=== PATIENT | male | born 1980 | race African-American/Black ===

== ENCOUNTER 2021-08-28 10:12 | Emergency (ER) | payer MEDICAID, OTHER ==
[~2021-08-28] VITALS: Ht 185.4 cm; Wt 104.8 kg
--- NOTE | 2021-08-28 10:12 | NUR ---
PT BIBRA 102 FROM [facility] C/O BIZARRE BEHAVIOR "HE WAS TALKING TO HIMSELF AND OUT OF PSYCH MEDS" PT IS AAOX3, NOT IN RESPIRTORY DISTRESS, V/S STABLE, KEPT RESTED AND COMFORTABLE. WILL CONTINUE TO MONITOR.
--- NOTE | 2021-08-28 10:22 | NUR ---
CALLED SECURITY FOR WANDING.
[2021-08-28] MEDS ORDERED: OLANZAPINE 10 MG VIAL IM ONE ×2 (10:28→10:30)
[2021-08-28] MEDS ORDERED: LORAZEPAM INJ 2 MG/ML VIAL ONE (10:29)
[2021-08-28] MEDS ORDERED: LORAZEPAM INJ 2 MG/ML VIAL IVP ONE (10:30)
--- NOTE | 2021-08-28 10:35 | NUR ---
ER PHLEB AT BEDSIDE FOR BLOOD DRAW.
[2021-08-28 10:52] LABS: BASOPHILS # (AUTO) 0.1 K/uL (0.0-0.2); BASOPHILS % (AUTO) 0.6 % (0.0-2.0); EOSINOPHILS % (AUTO) 1.2 % (0.0-6.0); HEMATOCRIT 43 % (39-51); HEMOGLOBIN 14.5 g/dL (13.5-17.5); LYMPHOCYTES # (AUTO) 1.7 K/uL (0.8-4.8); MEAN CORPUSCULAR HGB CONC 34 g/dl (31.0-36.0); MEAN CORPUSCULAR VOLUME 91 fL (80-96); MONOCYTES # (AUTO) 0.8 K/uL (0.1-1.30); MONOCYTES % (AUTO) 8.9 % (2.0-12.0); NEUTROPHILS # (AUTO) 5.9 K/uL (1.8-8.9); NEUTROPHILS % (AUTO) 69.3 % (43.0-81.0); PLATELET COUNT (AUTO) 286 K/uL (150-450); WHITE BLOOD COUNT (AUTO) 8.6 K/uL (4.3-11.0)
[2021-08-28 11:08] LABS: ALANINE AMINOTRANSFERASE 19 U/L (12-78); ALCOHOL, BLOOD < 3 mg/dL (0-0); ALKALINE PHOSPHATASE 62 U/L (46-116); ASPARTATE AMINOTRANSFERASE 11 U/L (15-37); BILIRUBIN,DIRECT 0.1 mg/dL (0.0-0.2); BILIRUBIN,TOTAL 0.3 mg/dL (0.2-1.0); CALCIUM, SERUM 9.2 mg/dL (8.5-10.1); CARBON DIOXIDE 25 mmol/L (21-32); CHLORIDE 102 mmol/L (98-107); GLUCOSE 106 mg/dL (74-106); POTASSIUM 3.6 mmol/L (3.5-5.1); SODIUM SERUM 136 mmol/L (136-145); TOTAL PROTEIN, SERUM 7.6 g/dL (6.4-8.2); UREA NITROGEN, BLOOD 9 mg/dL (7-18)
[2021-08-28 11:09] LABS: ACETAMINOPHEN 0 ug/ml (10-30)
[2021-08-28] MEDS ORDERED: OLAN10TA3 PO (18:15)
[2021-08-28 20:30] VITALS: BP 130/64
--- NOTE | 2021-08-28 20:30 | NUR ---
Patient discharged to home in stable condition. Written and verbal after care instructions given. Patient verbalizes understanding of instruction.
== END 2021-08-28 20:31 | disposition home or self-care (01) ==
LOC: ER 10:17
DX: F29 Unspecified psychosis not due to a substance or known physiological condition (principal); R45.1 Restlessness and agitation; J45.909 Unspecified asthma, uncomplicated; F20.9 Schizophrenia, unspecified; Z60.2 Problems related to living alone
CPT/HCPCS: 36415; 80048; 80076; 80143; 80320; 85025; 96372 ×2; 99284; J2060; J3490; J7040; G0480

== ENCOUNTER 2022-02-26 04:49 | Emergency (ER) | payer OTHER ==
[~2022-02-26] VITALS: Ht 188 cm; Wt 117.9 kg
[~2022-02-26 04:49] MED LIST: OLAN10TA3 PO
--- NOTE | 2022-02-26 04:55 | NUR ---
[id number] from street, hearing voices +SI no plan. c/o left ankle pain. Kept comfortable, will continue to monitor accordingly.
--- NOTE | 2022-02-26 05:00 | NUR ---
covid swab and urine collected and sent to lab.
--- NOTE | 2022-02-26 05:00 | NUR ---
security at bedside for wanding.
[2022-02-26 05:36] LABS: BASOPHILS % (AUTO) 0.4 % (0.0-2.0); EOSINOPHILS % (AUTO) 1.1 % (0.0-6.0); HEMATOCRIT 42 % (39-51); LYMPHOCYTES # (AUTO) 1.7 K/uL (0.8-4.8); LYMPHOCYTES % (AUTO) 16.8 % (20.0-44.0); MEAN CORPUSCULAR HGB CONC 34 g/dl (31.0-36.0); MEAN CORPUSCULAR VOLUME 90 fL (80-96); MONOCYTES # (AUTO) 1.2 K/uL (0.1-1.30); MONOCYTES % (AUTO) 11.7 % (2.0-12.0); NEUTROPHILS # (AUTO) 7.3 K/uL (1.8-8.9); PLATELET COUNT (AUTO) 312 K/uL (150-450); RED BLOOD CELL COUNT(AUTO) 4.66 MIL/uL (4.5-6.0); WHITE BLOOD COUNT (AUTO) 10.4 K/uL (4.3-11.0)
[2022-02-26 05:38] LABS: BILIRUBIN,URINE SMALL (NEGATIVE); COLOR,URINE YELLOW (YELLOW); LEUKOCYTE ESTERASE ,URINE NEGATIVE (NEGATIVE); NITRITE, URINE NEGATIVE (NEGATIVE); PH,URINE 5.5 (5.0-8.0); PROTEIN,URINE NEGATIVE (NEGATIVE); UGLUCOSE NEGATIVE (NEGATIVE); UROBILINOGEN,URINE 0.2 EU/dL (0.2)
[2022-02-26 05:43] LABS: BACTERIA,URINE Rare /HPF (None Seen); RBC,URINE 0-2 /HPF (0-2); SQUAMOUS EPITHELIAL CELL,UR Few /HPF (None Seen); WBC,URINE 0-2 /HPF (0-3)
[2022-02-26 05:47] LABS: CALCIUM, SERUM 9.3 mg/dL (8.5-10.1); CARBON DIOXIDE 28 mmol/L (21-32); CHLORIDE 103 mmol/L (98-107); CREATININE 1.1 mg/dL (0.6-1.3); GLUCOSE 100 mg/dL (74-106); POTASSIUM 3.7 mmol/L (3.5-5.1); SODIUM SERUM 137 mmol/L (136-145); UREA NITROGEN, BLOOD 22 mg/dL (7-18)
[2022-02-26 05:53] LABS: ALANINE AMINOTRANSFERASE 18 U/L (12-78); ALBUMIN 4.6 g/dL (3.4-5.0); ALCOHOL, BLOOD < 3 mg/dL (0-0); ALKALINE PHOSPHATASE 75 U/L (46-116); ASPARTATE AMINOTRANSFERASE 26 U/L (15-37); BILIRUBIN,DIRECT 0.1 mg/dL (0.0-0.2); BILIRUBIN,TOTAL 0.4 mg/dL (0.2-1.0); TOTAL PROTEIN, SERUM 8.2 g/dL (6.4-8.2)
[2022-02-26 05:55] LABS: ACETAMINOPHEN 0 ug/ml (10-30)
--- NOTE | 2022-02-26 07:17 | NUR ---
FACESHEET AND CLINICALS FAXED TO [facility].
--- NOTE | 2022-02-26 08:31 | NUR ---
CALLED [facility] INTAKE UNDER REVIEW AND WILL CALL US BACK.
--- NOTE | 2022-02-26 09:47 | NUR ---
PT A/O X3, VERBALLY RESPONSIVE, ABLE TO MAKE NEEDS KNOWN, NOT IN ACUTE DISTRESS. PT AMBULATORY, ASSISTED TO THE BATHROOM NEEDED.
[2022-02-26] MEDS ORDERED: OLANZAPINE 10 MG VIAL IM ONE ×3 (12:05→12:30)
--- NOTE | 2022-02-26 12:16 | NUR ---
ACCEPTED TO [facility] UNDER [address] [facility]URCH PLEASE CALL [phone] FOR REPORT. [employer] WILL COLLECT PT AT 1500 PER LAKISHA.
[2022-02-26] MEDS ORDERED: OLAN5TAB3 PO (14:30)
--- NOTE | 2022-02-26 15:02 | NUR ---
PT REFUSED TO GO TO [facility] PT STAED HE IS NOT SUICIDAL AND WANTS FOOD AND A PLACE TO REST. PT DISCHARGED IN STABLE CONDITION. BELONGINGS WERE GIVEN BACK TO PT. PT ABLE TO WALK WIHTOUT ASSISTANCE.
[2022-02-26 15:23] VITALS: BP 135/81
== END 2022-02-26 15:23 | disposition home or self-care (01) ==
LOC: ER 04:50
DX: R45.851 Suicidal ideations (principal); F20.9 Schizophrenia, unspecified; Z20.822 Contact with and (suspected) exposure to COVID-19
CPT/HCPCS: 99285; 96372; 85025; 80048; 80076; 81001; 36415; 87426; 80143; 80320; 80307; J3490; C9803; G0480

== ENCOUNTER 2022-05-03 19:41 | Emergency (ER) | payer OTHER ==
[~2022-05-03] VITALS: Ht 188 cm; Wt 104.3 kg
[~2022-05-03 19:41] MED LIST changes: +OLAN5TAB3 PO
--- NOTE | 2022-05-03 19:49 | NUR ---
BIBRA39 FROM HOME C/O Asthma Exacerbation. [employer] administered breathing tx; tolerating well. Connected PT to POX and monitor.
[2022-05-03] MEDS ORDERED: IPRATROPIUM NEB FS 0.5 MG/2.5 ML AMPUL.NEB NEB ONE (20:30)
[2022-05-03] MEDS ORDERED: predniSONE 20 MG TABLET PO ONE (20:30)
[2022-05-03] MEDS ORDERED: ALBUTEROL FS 2.5 MG/3 ML VIAL.NEB NEB ONE (20:30)
--- NOTE | 2022-05-03 20:32 | NUR ---
RT AT PT'S BEDSIDE
[2022-05-03] MEDS ORDERED: predniSONE 20 MG TABLET ONE (20:43)
[2022-05-03] MEDS ORDERED: ALBU8.5H8 INH (21:24)
[2022-05-03] MEDS ORDERED: PRED20TA PO (21:24)
--- NOTE | 2022-05-03 21:29 | NUR ---
Patient discharged to home in stable condition. Written and verbal after care instructions given. Patient verbalizes understanding of instruction.
[2022-05-04 00:12] VITALS: BP 131/81
== END 2022-05-03 21:29 | disposition home or self-care (01) ==
LOC: ER 19:50
DX: J45.901 Unspecified asthma with (acute) exacerbation (principal); F20.9 Schizophrenia, unspecified; F17.200 Nicotine dependence, unspecified, uncomplicated; Z60.2 Problems related to living alone
CPT/HCPCS: 99283; J7512

== ENCOUNTER 2023-10-08 14:55 | Emergency (ER) | payer OTHER ==
[~2023-10-08] VITALS: Ht 185.4 cm; Wt 81.6 kg
[~2023-10-08 14:55] MED LIST changes: +ALBU8.5H8 INH; +PRED20TA PO
[2023-10-08 16:02] VITALS: TEMP 98.2
[2023-10-08 16:52] LABS: BASOPHILS % (AUTO) 0.3 % (0.0-2.0); EOSINOPHILS # (AUTO) 0.1 K/uL (0.0-0.7); EOSINOPHILS % (AUTO) 1.3 % (0.0-6.0); HEMATOCRIT 40 % (39-51); HEMOGLOBIN 13.5 g/dL (13.5-17.5); LYMPHOCYTES # (AUTO) 1.9 K/uL (0.8-4.8); LYMPHOCYTES % (AUTO) 22.5 % (20.0-44.0); MEAN CORPUSCULAR HEMOGLOBIN 30 PG (26.0-33.0); MEAN CORPUSCULAR HGB CONC 34 g/dl (31.0-36.0); MEAN CORPUSCULAR VOLUME 89 fL (80-96); MONOCYTES # (AUTO) 0.6 K/uL (0.1-1.30); MONOCYTES % (AUTO) 6.9 % (2.0-12.0); PLATELET COUNT (AUTO) 314 K/uL (150-450); RED BLOOD CELL COUNT(AUTO) 4.52 MIL/uL (4.5-6.0); RED CELL DISTRIBUTION WIDTH 14.1 % (11.5-15.0); WHITE BLOOD COUNT (AUTO) 8.7 K/uL (4.3-11.0)
[2023-10-08 17:14] LABS: CALCIUM, SERUM 8.3 mg/dL (8.5-10.1); CARBON DIOXIDE 30 mmol/L (21-32); CHLORIDE 103 mmol/L (98-107); CREATININE 0.9 mg/dL (0.6-1.3); GLUCOSE 111 mg/dL (74-106); POTASSIUM 3.4 mmol/L (3.5-5.1); SODIUM SERUM 138 mmol/L (136-145); UREA NITROGEN, BLOOD 10 mg/dL (7-18)
[2023-10-08 17:20] LABS: ALANINE AMINOTRANSFERASE 38 U/L (12-78); ALBUMIN 3.6 g/dL (3.4-5.0); ALCOHOL, BLOOD < 3 mg/dL (0-10); ALKALINE PHOSPHATASE 75 U/L (46-116); ASPARTATE AMINOTRANSFERASE 19 U/L (15-37); BILIRUBIN,TOTAL 0.1 mg/dL (0.2-1.0); TOTAL PROTEIN, SERUM 6.9 g/dL (6.4-8.2)
[2023-10-08 17:23] LABS: APPEARANCE,URINE Clear (CLEAR); BILIRUBIN,URINE Negative (NEGATIVE); BLOOD, URINE Negative Ery/uL (NEGATIVE); COLOR,URINE YELLOW (YELLOW); KETONES,URINE 15 mg/dL (NEGATIVE); LEUKOCYTE ESTERASE ,URINE Negative (NEGATIVE); NITRITE, URINE Negative (NEGATIVE); PROTEIN,URINE Negative (NEGATIVE); UGLUCOSE Negative (NEGATIVE); UROBILINOGEN,URINE 0.2 EU/dL (0.2)
[2023-10-08 17:27] LABS: ACETAMINOPHEN < 2 ug/ml (10-30); BILIRUBIN,DIRECT 0.1 mg/dL (0.0-0.2); SALICYLATE 2.2 mg/dL (2.8-20.0)
[2023-10-08 17:30] LABS: AMPHETAMINE, URINE NEGATIVE (NEGATIVE); BARBITURATE, URINE NEGATIVE (NEGATIVE); BENZODIAZEPINE, URINE NEGATIVE (NEGATIVE); CANNABINOID, URINE NEGATIVE (NEGATIVE); COCCAINE, URINE NEGATIVE (NEGATIVE); OPIATE, URINE NEGATIVE (NEGATIVE); PHENCYCLIDINE SCREEN,URINE NEGATIVE (NEGATIVE)
[2023-10-08 20:25] VITALS: BP 131/81; O2SAT 99
== END 2023-10-08 21:16 ==
LOC: ER 14:59
DX: Z00.8 Encounter for other general examination (principal); J45.909 Unspecified asthma, uncomplicated; F20.9 Schizophrenia, unspecified; F17.200 Nicotine dependence, unspecified, uncomplicated; Z79.899 Other long term (current) drug therapy; Z20.822 Contact with and (suspected) exposure to COVID-19; Z60.2 Problems related to living alone
CPT/HCPCS: 36415; 80048-TC; 80076-TC; 85025-TC; G0480